=== PATIENT | male | born 1995 | race Caucasian/White ===

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

== ENCOUNTER 2020-03-22 20:35 | Emergency (ER) | payer OTHER ==
[~2020-03-22 20:35] MED LIST: BENTYL 10MG CAP10 MG PO; BENTYL 20MG TAB20 MG PO; IBUPROFEN800 MG PO; LODINE CAP 300300 MG PO; ZOFRAN ODT 4 MG4 MG PO; ZOFRAN4 MG PO
[2020-03-22] MEDS ORDERED: ZOFRAN ODT 4 MG4 MG SL (21:27)
== END 2020-03-22 21:37 | disposition home or self-care (01) ==
LOC: ER1 20:35
DX: R10.13 Epigastric pain (principal); R11.2 Nausea with vomiting, unspecified; F17.200 Nicotine dependence, unspecified, uncomplicated
CPT/HCPCS: 99283

== ENCOUNTER 2020-05-16 13:55 | Emergency (ER) | payer OTHER ==
[~2020-05-16 13:55] MED LIST changes: +ZOFRAN ODT 4 MG4 MG SL
[2020-05-16 14:15] LABS: HEMOGLOBIN 17.5 gm/dl (14.0-17.5); RED BLOOD COUNT 5.92 M/UL (4.20-5.50); WHITE BLOOD COUNT 9.2 K/UL (4.5-11.0)
[2020-05-16 14:35] LABS: BUN/CREATININE RATIO 16 (0-10)
[2020-05-16] MEDS ORDERED: ZOFRAN ODT 4 MG4 MG SL (15:20)
== END 2020-05-16 16:15 | disposition home or self-care (01) ==
LOC: ER1 13:55
PROVIDERS: Emergency Medicine
DX: E86.0 Dehydration (principal); R11.2 Nausea with vomiting, unspecified; R53.1 Weakness
CPT/HCPCS: 80053; 80307; 81001; 83690; 85025; 87045; 87046; 93005; 96374; 99284; J2405

== ENCOUNTER 2020-06-07 09:54 | Emergency (ER) | payer OTHER ==
[2020-06-07 10:56] LABS: HEMOGLOBIN 17.5 gm/dl (14.0-17.5); RED BLOOD COUNT 5.84 M/UL (4.20-5.50); WHITE BLOOD COUNT 13.2 K/UL (4.5-11.0)
[2020-06-07 11:24] LABS: BUN/CREATININE RATIO 18 (0-10)
== END 2020-06-07 13:20 | disposition home or self-care (01) ==
LOC: ER1 09:54
PROVIDERS: Family Medicine
DX: R07.89 Other chest pain (principal); F17.210 Nicotine dependence, cigarettes, uncomplicated; Z71.6 Tobacco abuse counseling
CPT/HCPCS: 71045; 80053; 82550; 82553; 83874; 84484; 85025; 85379; 93005; 96374; 99285; J1885

== ENCOUNTER 2020-08-14 08:01 | Emergency (ER) | payer OTHER ==
[2020-08-14] MEDS ORDERED: CEPHALEXIN500 MG PO (08:15)
== END 2020-08-14 08:26 | disposition home or self-care (01) ==
LOC: ER1 08:01
DX: L03.211 Cellulitis of face (principal); F17.200 Nicotine dependence, unspecified, uncomplicated
CPT/HCPCS: 99282

== ENCOUNTER 2020-10-11 01:37 | Emergency (ER) | payer OTHER ==
[~2020-10-11 01:37] MED LIST changes: +CEPHALEXIN500 MG PO
[2020-10-11] MEDS ORDERED: LODINE CAP 300300 MG PO (02:04)
== END 2020-10-11 02:12 | disposition home or self-care (01) ==
LOC: ER1 01:37
DX: L55.9 Sunburn, unspecified (principal); F17.210 Nicotine dependence, cigarettes, uncomplicated
CPT/HCPCS: 96372; 99282; J1100

== ENCOUNTER 2020-12-08 14:40 | Emergency (ER) | payer OTHER | END 2020-12-08 16:09 | disposition home or self-care (01) | LOC: ER1 14:40 | DX: S80.11XA Contusion of right lower leg, initial encounter (principal); W01.0XXA Fall on same level from slipping, tripping and stumbling without subsequent striking against object, initial encounter | CPT/HCPCS: 73590; 99283 ==